=== PATIENT | female | born 1980 | race African-American/Black ===

== ENCOUNTER 2017-01-13 13:42 | Observation (INO) | payer OTHER ==
[2017-01-13] VITALS (10 sets, daily range): BP systolic 100–134; BP diastolic 48–77; PULSE 89–95; RESP 16–18; TEMP 98.1–98.7
[~2017-01-13 13:42] MED LIST: IBUP800T23 PO; PERI8.6T PO; PRENTAB PO
--- NOTE | 2017-01-13 14:09 | PD ---
HPI Chief Complaint Contractions Date Seen: Jan 13, 2017 (Genesis Mills MD R1) Travel History International Travel<30 Days: No Contact w/Intl Traveler<30Days: No Known Affected Area: No (Genesis Mills MD R1) History of Present Illness HPI Patient is a 36-year-old at 35/6 weeks gestation that presents to the [facility] ED with a chief complaint of contractions that began last night. She describes the contractions as sharp and long, 9/10, 10 minutes apart but have slowed down a bit today. The pelvic exam was performed at clinic where she was found to be 2-3 cm dilated with blood on the glove. Patient denies vaginal bleeding but states that she has seen some blood in her underwear after the pelvic exam. She denies loss of fluid, abnormal vaginal discharge, and endorses positive movements. Patient gets her care at [facility] with Zainab Daniels and was sent to the ED from clinic this morning. All her labs are negative. She did have chlamydia in October 2016, but had a negative test of cure in November 2016. Para: 5 : 7 Miscarriage: 1 : 0 (Genesis Mills MD R1) History Past Medical History Medical History: Denies Significant Hx (Genesis Mills MD R1) Obstetric History Obstetric History -1 miscarriage at 6 weeks -One child at 10 months (Genesis Mills MD R1) Social History Alcohol Use: No Tobacco Use: Yes (1 cigarette per day) Substance Abuse: No (remote history of marijuana and in the ) (Genesis Mills MD R1) Allergies-Medications (Allergen,Severity, Reaction): Coded Allergies: No Known Allergies (Verified , 09/11/16) Home Meds Active Scripts Sennosides-Docusate Sodium (Lia-Colace 8.6-50 mg)1 Tab Tab1 T Po Bid Prn ( Constipation) #30 Prov:Renata Cheatham MD 10/31/14 Ibuprofen 800 Mg [id number] Mg PO Q8 PRN (PAIN SCALE 4 TO 10) #30 TAB Ref 0 Prov:Renata Cheatham MD 10/31/14 Reported Medications Multivit-Min W/Fe-FA () Tab1 Tab PO DAILY 10/29/14 Review of Systems General / Constitutional: No: Fever, Chills Cardiovascular: No: Chest Pain or Discomfort Respiratory: No: Cough, Short of Breath Gastrointestinal: No: Nausea, Vomiting, Diarrhea Genitourinary: No: Dysuria Skin: No Rash (Genesis Mills MD R1) Physical Exam Narrative GENERAL: Well-nourished, well-developed patient. SKIN: Warm and dry. HEAD: Normocephalic and atraumatic. EYES: No scleral icterus. No injection or drainage. ENT: No nasal drainage noted. Mucous membranes pink. Airway patent. NECK: Supple, trachea midline. No JVD. CARDIOVASCULAR: Regular rate and rhythm without murmurs, gallops, or rubs. RESPIRATORY: Breath sounds equal bilaterally. No accessory muscle use. BREASTS: Bilateral exam showed no masses , no retractions, no nipple discharge. ABDOMEN/GI: Abdomen soft, non-tender, bowel sounds present, no rebound, no guarding Gravid to 35 weeks size Fundal Height: 35cm GENITOURINARY: External Genitalia: intact and normal in appearance Cervix: High and posterior Dilatation: 2-3cm Effacement: 50% Station: -3 Presentation: [-] Membranes: Intact Uterine Contractions: Present, every 2-3 minutes FHT's: Category: I Baseline: 145 Reactive: Yes, up to 155 Variability: Moderate Decels: None EXTREMITIES: No cyanosis or edema. BACK: Nontender without obvious deformity. No CVA tenderness. NEUROLOGICAL: Awake and alert. Motor and sensory grossly within normal limits. Five out of 5 muscle strength in all muscle groups. Normal speech. (Genesis Mills MD R1) Data Data Vital Signs Reviewed: Yes (Genesis Mills MD R1) [facility] Medical Record Reviewed: Yes Interpretation(s) 36 year old at 35/6 weeks gestation presents in labor. Plan Intrauterine - tracing category 1, reassuring -Contractions present every 2-3 minutes on tocometer -Cervical exam: 2-3 cm/50%/-3 -Urinalysis pending -UDS pending -LR bolus for the first 500 mL and then at 150 mL/hr -On recheck, cervical exam was 4cm dilated -Admit on observation -Rapid GBS -GBS prophylaxis with penicillin -Steroids 2 -Terbutaline subcutaneous 1 (Genesis Mills MD R1) Diagnosis Diagnosis: Primary Impression: labor in third trimester Condition: Stable Attestation Patient seen and examined. Agree with resident's assessment. (Khsuhboo Aguilera MD) Genesis Mills MD R1 Jan 13, 2017 14:09 Khushboo Aguilera MD Jan 13, 2017 16:24
[2017-01-13] MEDS ORDERED: LACTATED RINGER'S 1000 ML INJ 1,000 ML IV SCH (15:36)
[2017-01-13] MEDS ORDERED: SODIUM CHLORIDE 0.9% FLUSH 10 ML FLUSH IV FLUSH PRN (15:45)
--- NOTE | 2017-01-13 15:47 | HHI.HP ---
HPI Chief Complaint labor Date Seen: Jan 13, 2017 (Genesis Mills MD R1) Travel History International Travel<30 Days: No Contact w/Intl Traveler<30Days: No Known Affected Area: No (Genesis Mills MD) History of Present Illness HPI Patient is a 36-year-old at 35/6 weeks gestation that presents to the [facility] ED with a chief complaint of contractions that began last night. She describes the contractions as sharp and long, 9/10, 10 minutes apart but have slowed down a bit today. The pelvic exam was performed at clinic where she was found to be 2-3 cm dilated with blood on the glove. Patient denies vaginal bleeding but states that she has seen some blood in her underwear after the pelvic exam. She denies loss of fluid, abnormal vaginal discharge, and endorses positive movements. Patient gets her care at [facility] with Zainab Daniels and was sent to the ED from clinic this morning. All her labs are negative. She did have chlamydia in October 2016, but had a negative test of cure in November 2016. Para: 5 : 7 Miscarriage: 1 : 0 (Genesis Mills MD R1) History Past Medical History Medical History: Denies Significant Hx (Genesis Mills MD) Obstetric History Obstetric History All babies were delivered at [facility] -G1: 2000, spontaneous , no D&C -G2: 2001, full-term, spontaneous vaginal delivery, female, 8 lbs. 12 oz. -G3: 2003, full-term, , female, 6 lbs. 11 oz. -G4: 2010, full-term, , male, 7 pounds -G5: 2011, full-term, , male 7 lbs. 8 oz. -G6: 2014, full-term, , female 7 lbs. 15 oz.- due to SIDS at 5 months (Genesis Mills MD) Past Surgical History Surgical History: No Previous Surgery (Genesis Mills MD) Family History Narrative Family History Maternal grandmother has diabetes (Genesis Mills MD) Social History Alcohol Use: No Tobacco Use: Yes (1 cigarette per day) Substance Abuse: No (marijuana use early in the ) (Genesis Mills MD R1 ) Allergies-Medications (Allergen,Severity, Reaction): Coded Allergies: No Known Allergies (Verified , 09/11/16) Home Meds Active Scripts Sennosides-Docusate Sodium (Lia-Colace 8.6-50 mg)1 Tab Tab1 T Po Bid Prn ( Constipation) #30 Prov:Renata Cheatham MD 10/31/14 Ibuprofen 800 Mg [id number] Mg PO Q8 PRN (PAIN SCALE 4 TO 10) #30 TAB Ref 0 Prov:Renata Cheatham MD 10/31/14 Reported Medications Multivit-Min W/Fe-FA () Tab1 Tab PO DAILY 10/29/14 Review of Systems General / Constitutional: No: Fever, Chills Cardiovascular: No: Chest Pain or Discomfort Respiratory: No: Cough, Short of Breath Gastrointestinal: No: Nausea, Vomiting, Diarrhea Genitourinary: No: Dysuria Skin: No Rash (EkGenesis camilo MD R1) Physical Exam Vital Signs Date Time Temp Pulse Resp B/P Pulse Ox O2 Delivery O2 Flow Rate FiO2 01/13/17 14:16 16 01/13/17 14:15 89 120/67 Narrative GENERAL: Well-nourished, well-developed patient. SKIN: Warm and dry. HEAD: Normocephalic and atraumatic. EYES: No scleral icterus. No injection or drainage. ENT: No nasal drainage noted. Mucous membranes pink. Airway patent. NECK: Supple, trachea midline. No JVD. CARDIOVASCULAR: Regular rate and rhythm without murmurs, gallops, or rubs. RESPIRATORY: Breath sounds equal bilaterally. No accessory muscle use. BREASTS: Bilateral exam showed no masses , no retractions, no nipple discharge. ABDOMEN/GI: Abdomen soft, non-tender, bowel sounds present, no rebound, no guarding Gravid to 35 weeks size Fundal Height: 35cm GENITOURINARY: External Genitalia: intact and normal in appearance Cervix: High and posterior Dilatation: 4 cm Effacement: 50% Station: -3 Presentation: cephalic Membranes: Intact Uterine Contractions: Present, every 2-3 minutes FHT's: Category: I Baseline: 145 Reactive: Yes, up to 155 Variability: Moderate Decels: None EXTREMITIES: No cyanosis or edema. BACK: Nontender without obvious deformity. No CVA tenderness. NEUROLOGICAL: Awake and alert. Motor and sensory grossly within normal limits. Five out of 5 muscle strength in all muscle groups. Normal speech. (EkoGenesis MD R1) Data Data Vital Signs Reviewed: Yes Orders Vital Signs (Adult) .ON ADMISSION (01/13/17 14:09) ^ Labor Status (01/13/17 14:09) Urinalysis - C+S If Indicated (01/13/17 14:09) ^ Non Stress Test (01/13/17 14:) ^ Hydration (01/13/17 14:) Drug Screen, Random Urine (01/13/17 14:09) Lactated Ringer's 1000 Ml Inj (Lr 1000 M (01/13/17 14:30) Place In Observation (01/13/17 ) Code Status (01/13/17 15:36) Vital Signs (Adult) Q4H (01/13/17 15:36) Activity Bed Rest (01/13/17 15:36) Intake + Output CJ.QSHIFT (01/13/17 15:36) Heart CONTINUOUS (01/13/17 15:36) Diet Npo (01/13/17 Dinner) Sodium Chloride 0.9% Flush (Ns Flush) (01/13/17 15:45) Sodium Chloride 0.9% Flush (Ns Flush) (01/13/17 21:00) Betamethasone Inj (Celestone Soluspan In (01/13/17 15:45) Penicillin G Potassium Inj (Pfizerpen-G (01/13/17 15:45) Penicillin G Potassium Inj (Pfizerpen-G (01/13/17 17:45) Terbutaline Inj (Brethine Inj) (01/13/17 15:45) (EkoGenesis MD R1) Assessment/Plan Assessment and Plan 36 year old presents to the [place] ED in labor Intrauterine - tracing category 1, reassuring -Contractions present every 2-3 minutes on tocometer -Cervical exam: 4 cm/50%/-3, recheck was 4 cm dilated -Admit on observation -LR bolus for the first 500 mL and then at 150 mL/hr -Rapid GBS -GBS prophylaxis with penicillin -Steroids 2 -Terbutaline subcutaneous 1 -Urinalysis shows moderate occult blood, large leukocyte esterase, 18 WBC, 5 RBC , rare bacteria -Will wait for cultures to determine treatment -UDS pending Discharge Planning Possibly in 1-3 days depending on how labor progresses (Genesis Mills MD R1) Attestation Patient seen and examined. Will admit for observation for labor. Plan d/w patient. All questions answered. GBS culture and Urine culture pending. Antibiotics for GBS prophylaxis. Will administer steroids. (Khushboo Aguilera MD ) Genesis Mills MD R1 Jan 13, 2017 15:47 Khushboo Aguilera MD Jan 13, 2017 16:26
[2017-01-13 15:48] LABS: BACTERIA, URINE RARE /hpf; BLOOD, URINE MOD (NEG); COMMENT (UR) CULTURE INDICATED; CULTURE IF INDICATED CULTURE INDICATED; GLUCOSE,URINE NEG (NEG); KETONE, URINE NEG (NEG); NITRITE,URINE NEG (NEG); SQUAMOUS EPITHELIAL CELL URINE 5 /hpf (0-5); URINE COLOR LIGHT-YELLOW (YELLW/STRAW)
[2017-01-13] MEDS ORDERED: TERBUTALINE INJ 1 MG/ML AMP SQ ONE (16:00)
[2017-01-13] MEDS: BETAMETHASONE SOD PHOS/ACETATE SUSP 30 MG/5 ML VIAL IM SCH (16:01)
[2017-01-13 16:06] LABS: AMPHETAMINE, URINE NEG (NEG); BARBITURATES, URINE NEG (NEG); COCAINE, URINE NEG (NEG)
[2017-01-13] MEDS ORDERED: PENICILLIN G POTASSIUM INJ 5,000,000 UNITS in SODIUM CHLORIDE 0.9% INJ 100 ML IV ONE (17:00)
--- NOTE | 2017-01-13 20:09 | PD.LABORPN ---
Subjective Subjective Patient without complaints. Reports occasional contractions. Good FM. Objective Vital Signs Vital Signs Date Time Temp Pulse Resp B/P Pulse Ox O2 Delivery O2 Flow Rate FiO2 01/13/17 19:19 98.7 01/13/17 19:16 18 01/13/17 19:15 95 116/66 01/13/17 17:21 89 134/77 01/13/17 16:30 98.1 18 01/13/17 14:16 16 01/13/17 14:15 89 120/67 Objective Pelvic Exam: Cervix: [-] Dilatation: [3-4] Effacement: [60] Station: [2] Presentation: [-] Membranes: [intact or ruptured] Uterine Contractions: [irregular] FHT's: Category: [1] Baseline: [140s] Reactive: [reactive] Variability: [moderate] Decels: [rare variable] Assessment/Plan Assessment and Plan IUP at 35w 6d, r/o labor. Will continue antibiotics. S/p BMZ x 1. Continue to monitor. Khushboo Aguilera MD Jan 13, 2017 20:09
[2017-01-13] MEDS: SODIUM CHLORIDE 0.9% FLUSH 10 ML FLUSH IV FLUSH SCH (21:00)
[2017-01-13] MEDS: LACTATED RINGER'S 1000 ML INJ 1,000 ML IV SCH (21:31)
[2017-01-13] MEDS: PENICILLIN G POTASSIUM INJ 2,500,000 UNITS in SODIUM CHLORIDE 0.9% INJ 100 ML IV SCH (21:31)
[2017-01-13 22:01] LABS: AUTOMATED NEUTROPHIL # 6.3 TH/MM3 (1.8-7.7); BASOPHIL # 0.1 TH/MM3 (0-0.2); EOSINOPHIL % 0.4 % (0.0-4.0); HEMATOCRIT 33.5 % (35.0-46.0); HEMO FLAGS DIFF FINAL; LYMPH % 25.2 % (9.0-44.0); LYMPHOCYTE # 2.5 TH/MM3 (1.0-4.8); MEAN CELL VOLUME 82.6 FL (80.0-100.0); MEAN CORPUSCULAR HEMOGLOBIN 27.9 PG (27.0-34.0); MEAN CORPUSCULAR HGB CONC 33.7 % (32.0-36.0); MONO % 9.7 % (0.0-8.0); NEUT % 63.7 % (16.0-70.0); PLATELET COUNT 208 TH/MM3 (150-450); RED BLOOD COUNT 4.06 MIL/MM3 (4.00-5.30); RED CELL DISTRIBUTION WIDTH 13.5 % (11.6-17.2); WHITE BLOOD COUNT 9.8 TH/MM3 (4.0-11.0)
[2017-01-14] MEDS: PENICILLIN G POTASSIUM INJ 2,500,000 UNITS in SODIUM CHLORIDE 0.9% INJ 100 ML IV SCH ×4 (01:04→13:00)
[2017-01-14] MEDS: LACTATED RINGER'S 1000 ML INJ 1,000 ML IV SCH ×2 (01:05→06:30)
[2017-01-14 01:06] VITALS: RESP 16
[2017-01-14 04:00] VITALS: RESP 16
[2017-01-14 05:09] VITALS: RESP 16
[2017-01-14 07:27] VITALS: BP 110/60; PULSE 94; TEMP 97.8
--- NOTE | 2017-01-14 08:14 | PD.LABORPN ---
Subjective Subjective Patient without complaints. Objective Vital Signs Vital Signs Date Time Temp Pulse Resp B/P Pulse Ox O2 Delivery O2 Flow Rate FiO2 01/14/17 07:27 97.8 01/14/17 07:27 94 110/60 01/14/17 05:09 16 01/14/17 04:00 16 01/14/17 01:06 16 Objective Pelvic Exam: Cervix: [-] Dilatation: [3-4] Effacement: [50] Station: [-3] Presentation: [-] Membranes: [intact or ruptured] Uterine Contractions: [irregular] FHT's: Category: [2] Baseline: [120s] Reactive: [reactive] Variability: [moderate] Decels: [variable to 100s] Assessment/Plan Assessment and Plan IUP at 36w 2d, admitted for possible labor, treated for UTI. Continue to monitor. Will obtain BPP. All questions answered. Khushboo Aguilera MD Jan 14, 2017 08:13
--- NOTE | 2017-01-14 08:50 | PD.LABORPN ---
Subjective Subjective Pt is doing well. Still feeling contractions but less than yesterday. Objective Vital Signs Vital Signs Date Time Temp Pulse Resp B/P Pulse Ox O2 Delivery O2 Flow Rate FiO2 01/14/17 07:27 97.8 01/14/17 07:27 94 110/60 01/14/17 05:09 16 01/14/17 04:00 16 01/14/17 01:06 16 Objective Pelvic Exam: Cervix: Posterior Dilatation: 3-4cm Effacement: 40% Station: -3 Presentation: Cephalic Membranes: intact Uterine Contractions: present, irregular frequency FHT's: Category: 1 Baseline: 130 Reactive: up to 160 Variability: Moderate Decels: early Assessment/Plan Assessment and Plan 36 in labor. -IUP - category 1 -Contractions occurring in decreased frequency -Cervical exam unchanged -Will transition to intermittent monitoring Genesis Mills MD R1 Jan 14, 2017 08:50
[2017-01-14] MEDS: SODIUM CHLORIDE 0.9% FLUSH 10 ML FLUSH IV FLUSH SCH (09:00)
[2017-01-14 12:00] VITALS: RESP 18; TEMP 97.6
[2017-01-14 12:19] VITALS: BP 111/65; PULSE 92
--- NOTE | 2017-01-14 14:50 | HHI.DCPOC ---
Discharge Care Plan Diagnosis: (1) labor in third trimester Report Symptoms to Your Doctor -Temperate above 100.5 degrees -Redness, of incision or excessive or foul smelling drainage -Unusual pain or calf pain -Increased vaginal bleeding -Painful or difficulty urinating -Feelings of extreme sadness or anxiety after 2 weeks Goals to Promote Your Health * To prevent worsening of your condition and complications * To maintain your health at the optimal level Directions to Meet Your Goals Take your medications as prescribed Follow your dietary instruction Follow activity as directed Ensure plenty of rest for recovery Drink fluids for hydration Keep your appointments as scheduled Take your immunizations and boosters as scheduled If your symptoms worsen call your PCP, if no PCP go to Urgent Care Center or Emergency Room Smoking is Dangerous to Your Health. Avoid second hand smoke Call the 24-hour crisis hotline for domestic abuse at Genesis Mills MD R1 Jan 14, 2017 14:50
[2017-01-14] MEDS: BETAMETHASONE SOD PHOS/ACETATE SUSP 30 MG/5 ML VIAL IM SCH (16:05)
[2017-01-18 09:48] LABS: ECSTASY (MDMA) UR NEG (NEG); HEROIN (6-ACETYLMORPHINE) UR NEG (NEG); OBMETHADONE UR NEG (NEG); PHENCYCLIDINE URINE NEG (NEG)
[2017-01-18 09:49] LABS: BATH SALTS (MDPV) UR NEG (NEG); K2 SPICE UR NEG (NEG); OXYCODONE (PERCODAN) NEG (NEG)
== END 2017-01-14 16:28 | disposition home or self-care (01) ==
LOC: HOBED 13:42 → H2EA 16:11
PROVIDERS: ADMIT Obstetrics & Gynecology; ATTEND Obstetrics & Gynecology
DX: O26.893 Other specified pregnancy related conditions, third trimester (principal); Z3A.36 36 weeks gestation of pregnancy; O60.03 Preterm labor without delivery, third trimester; O09.523 Supervision of elderly multigravida, third trimester; B96.89 Other specified bacterial agents as the cause of diseases classified elsewhere; D72.829 Elevated white blood cell count, unspecified; Z86.19 Personal history of other infectious and parasitic diseases
CPT/HCPCS: 59025; 76816; 76819; 80307; 81001; 85025; 86592; 86850; 86900; 86901; 87081; 87086; 87150; 96361; 96372; 96374; 99284; G0378; G0481; J0702; J2540; J3010; J3105; J7120

== ENCOUNTER 2017-02-01 08:48 | Inpatient (IN) | payer OTHER ==
[2017-02-01] VITALS (9 sets, daily range): BP systolic 111–125; BP diastolic 68–85; PULSE 67–84; RESP 16–18; TEMP 97.6–98.1
[~2017-02-01] VITALS: Ht 170.2 cm; Wt 71.7 kg
[~2017-02-01 08:48] MED LIST changes: -IBUP800T23 PO
[2017-02-01] MEDS ORDERED: LACTATED RINGER'S 1000 ML INJ 1,000 ML IV PRN (09:12)
[2017-02-01] MEDS ORDERED: CITRIC ACID-SODIUM CITRATE LIQ 30 ML UDC PO SCH (09:15)
[2017-02-01] MEDS ORDERED: OXYTOCIN 30 UNITS-500ML PREMIX 500 ML IV ONE (09:15)
[2017-02-01] MEDS ORDERED: MINERAL OIL 10 ML VIAL TOPICAL PRN (09:15)
[2017-02-01] MEDS ORDERED: SODIUM CHLORID 0.9% 500 ML INJ 500 ML IV PRN (09:15)
[2017-02-01] MEDS ORDERED: LIDOCAINE HCL 1% 50 ML VIAL INFIL PRN (09:15)
[2017-02-01] MEDS ORDERED: LIDOCAINE HCL 1% 50 ML VIAL I-DERMAL PRN (09:15)
[2017-02-01] MEDS ORDERED: SODIUM CHLOR 0.9% 1000 ML INJ 1,000 ML IV PRN (09:32)
--- NOTE | 2017-02-01 09:35 | PD ---
HPI Chief Complaint Contractions Date Seen: Feb 01, 2017 (Genesis Mills MD R1) Travel History International Travel<30 Days: No Contact w/Intl Traveler<30Days: No Known Affected Area: No (Genesis Mills MD) History of Present Illness HPI Patient is a 36-year-old at 38/6 weeks gestation that presents to the [facility] ED with a chief complaint of contractions that began this morning around 6 AM. Patient states that she started counting the contractions around 7 AM and they occur every 10 minutes. She denies loss of fluid, vaginal bleeding, abnormal/foul-smelling vaginal discharge and has been feeling the baby move. [facility]. All her labs are negative. She did have chlamydia in October 2016, but had a negative test of cure in November 2016. Notably, she is GBS negative. Para: 5 : 7 Miscarriage: 1 : 0 (Genesis Mills MD) History Past Medical History Medical History: Denies Significant Hx (Genesis Mills MD) Obstetric History Obstetric History All babies were delivered at [facility] -G1: 2000, spontaneous , no D&C -G2: 2001, full-term, spontaneous vaginal delivery, female, 8 lbs. 12 oz. -G3: 2003, full-term, , female, 6 lbs. 11 oz. -G4: 2010, full-term, , male, 7 pounds -G5: 2011, full-term, , male 7 lbs. 8 oz. -G6: 2014, full-term, , female 7 lbs. 15 oz.- due to SIDS at 5 months (Genesis Mills MD) Past Surgical History Surgical History: No Previous Surgery (Genesis Mills MD) Family History Narrative Family History Maternal grandmother has diabetes (Genesis Mills MD) Social History Alcohol Use: No Tobacco Use: Yes (smokes one cigar per day) Substance Abuse: Yes (marijuana, last use was 3 days ago) (Genesis Mills MD) Allergies-Medications (Allergen,Severity, Reaction): Coded Allergies: No Known Allergies (Verified , 02/01/17) Home Meds Reported Medications Multivit-Min W/Fe-FA () Tab1 Tab PO DAILY 10/29/14 Discontinued Scripts Sennosides-Docusate Sodium (Lia-Colace 8.6-50 mg)1 Tab Tab1 T Po Bid Prn ( Constipation) #30 Prov:Renata Cheatham MD 10/31/14 Review of Systems General / Constitutional: No: Fever, Chills Eyes: No: Blurred Vision, Visual changes HENT: No: Headaches Cardiovascular: No: Chest Pain or Discomfort Respiratory: Cough, No: Short of Breath Gastrointestinal: No: Nausea, Vomiting, Diarrhea Genitourinary: No: Dysuria, Discharge, Vaginal Bleeding Musculoskeletal: No: Weakness, Edema Skin: No Rash (EkoGenesis MD R1) Physical Exam Narrative GENERAL: Well-nourished, well-developed patient. SKIN: Warm and dry. HEAD: Normocephalic and atraumatic. EYES: No scleral icterus. No injection or drainage. ENT: No nasal drainage noted. Mucous membranes pink. Airway patent. NECK: Supple, trachea midline. No JVD. CARDIOVASCULAR: Regular rate and rhythm without murmurs, gallops, or rubs. RESPIRATORY: Breath sounds equal bilaterally. No accessory muscle use. ABDOMEN/GI: Abdomen soft, non-tender, bowel sounds present, no rebound, no guarding Gravid to 39 weeks size GENITOURINARY: External Genitalia: intact and normal in appearance Cervix: Mid position Dilatation: 3cm Effacement: 50% Station: -2 Presentation: Vertex Membranes: Intact Uterine Contractions: Presents, every 2-4 minutes FHT's: Category: I-II (intermittent periods of decreased variability) Baseline: 140 Reactive: Up to 150 Variability: Minimal to moderate variability Decels: None EXTREMITIES: No cyanosis or edema. BACK: Nontender without obvious deformity. No CVA tenderness. NEUROLOGICAL: Awake and alert. Motor and sensory grossly within normal limits. Five out of 5 muscle strength in all muscle groups. Normal speech. (Genesis Mills MD R1) Data Data Vital Signs Reviewed: Yes Orders Ob (2e) Additional Admit Info (02/01/17 09:11) Admit To Inpatient (02/01/17 ) Vital Signs (Adult) .Per protocol (02/01/17 09:12) Activity Oob Ad Yoselin (02/01/17 09:12) Heart (02/01/17 09:12) Amnioinfusion (02/01/17 09:12) Urinary Catheter Management .ONCE (02/01/17 09:12) Diet Npo (02/01/17 Breakfast) Lactated Ringer's 1000 Ml Inj (Lr 1000 M (02/01/17 09:12) Lactated Ringer's 1000 Ml Inj (Lr 1000 M (02/01/17 09:12) Sodium Chlorid 0.9% 500 Ml Inj (Ns 500 M (02/01/17 09:15) Sodium Chlor 0.9% 1000 Ml Inj (Ns 1000 M (02/01/17 09:32) Lidocaine 1% Inj (50 Ml) (Xylocaine 1% I (02/01/17 09:15) Citric Acid-Sodium Citrate Liq (Bicitra (02/01/17 09:15) Fentanyl Inj (Fentanyl Inj) (02/01/17 09:15) Fentanyl Inj (Fentanyl Inj) (02/01/17 09:15) Complete Blood Count With Diff (02/01/17 09:12) Hold Clot (02/01/17 09:12) Abo/Rh Blood Type (02/01/17 09:12) Urinalysis - C+S If Indicated (02/01/17 09:12) Resp Oxygen Non Rebreathe Mask (02/01/17 ) ^ Epidural / Intrathecal Infus (02/01/17 09:12) Oxytocin 30 Units-500ml Premix (Pitocin (02/01/17 09:15) Lidocaine 1% Inj (50 Ml) (Xylocaine 1% I (02/01/17 09:15) Light Mineral Oil (Muri-Lube Oil) (02/01/17 09:15) Inpatient Certification (02/01/17 ) Ob/Psych Drug Screen, Urine (02/01/17 09:26) (Eko,Genesis Ortiz MD R1) [facility] Medical Record Reviewed: Yes Interpretation(s) 36-year-old at 38/6 weeks gestation that presents in labor, GBS negative Plan Intrauterine - tracing category I-II with an intermittent periods of minimal variability that resolved with a 500 mL fluid bolus -Cervical exam: /-2 -Plan is to admit to labor and delivery -Continue monitoring -Routine antepartum care -UDS due to history of marijuana use during (Genesis Mills MD R1) Attending Attestation Patient seen and evaluated with resident under direct supervision, agree with assessment and plan. (Julián Jimenez MD) Genesis Mills MD R1 Feb 01, 2017 09:35 Julián Jimenez MD February 03, 2017 07:40
[2017-02-01] MEDS: LACTATED RINGER'S 1000 ML INJ 1,000 ML IV SCH ×2 (09:43→11:42)
--- NOTE | 2017-02-01 09:48 | HHI.HP ---
HPI Travel History International Travel<30 Days: No Contact w/Intl Traveler<30Days: No Known Affected Area: No (Genesis Mills MD R1) History of Present Illness HPI Patient is a 36-year-old at 38/6 weeks gestation that presents to the [facility] with a chief complaint of contractions that began this morning around 6 AM. Patient states that she started counting the contractions around 7 AM and they occur every 10 minutes. She denies loss of fluid, vaginal bleeding, abnormal/foul-smelling vaginal discharge and has been feeling the baby move. She [facility] care at [facility]. All her labs are negative. She did have chlamydia in October 2016, but had a negative test of cure in November 2016. Notably, she is GBS negative. Para: 5 : 7 Miscarriage: 1 : 0 (Genesis Mills MD R1) History Past Medical History Medical History: Denies Significant Hx (Genesis Mills MD) Obstetric History Obstetric History All babies were delivered at [facility] -G1: 2000, spontaneous , no D&C -G2: 2001, full-term, spontaneous vaginal delivery, female, 8 lbs. 12 oz. -G3: 2003, full-term, , female, 6 lbs. 11 oz. -G4: 2010, full-term, , male, 7 pounds -G5: 2011, full-term, , male 7 lbs. 8 oz. -G6: 2014, full-term, , female 7 lbs. 15 oz.- due to SIDS at 5 months (Genesis Mills MD R1) Past Surgical History Surgical History: No Previous Surgery (Genesis Mills MD) Family History Narrative Family History Maternal grandmother has diabetes (Genesis Mills MD) Social History Alcohol Use: No Tobacco Use: Yes (smokes one cigar per day) Substance Abuse: Yes (marijuana, last use was 3 days ago) (Genesis Mills MD R1) Allergies-Medications (Allergen,Severity, Reaction): Coded Allergies: No Known Allergies (Verified , 02/01/17) Home Meds Reported Medications Multivit-Min W/Fe-FA () Tab1 Tab PO DAILY 10/29/14 Discontinued Scripts Sennosides-Docusate Sodium (Lia-Colace 8.6-50 mg)1 Tab Tab1 T Po Bid Prn ( Constipation) #30 Prov:Renata Cheatham MD 10/31/14 Review of Systems General / Constitutional: No: Fever, Chills Eyes: No: Blurred Vision, Visual changes HENT: No: Headaches Cardiovascular: No: Chest Pain or Discomfort Respiratory: Cough, No: Short of Breath Gastrointestinal: No: Nausea, Vomiting, Diarrhea Genitourinary: No: Dysuria, Discharge, Vaginal Bleeding Musculoskeletal: No: Weakness, Edema Skin: No Rash (EkoGenesis MD R1) Physical Exam Narrative GENERAL: Well-nourished, well-developed patient. SKIN: Warm and dry. HEAD: Normocephalic and atraumatic. EYES: No scleral icterus. No injection or drainage. ENT: No nasal drainage noted. Mucous membranes pink. Airway patent. NECK: Supple, trachea midline. No JVD. CARDIOVASCULAR: Regular rate and rhythm without murmurs, gallops, or rubs. RESPIRATORY: Breath sounds equal bilaterally. No accessory muscle use. ABDOMEN/GI: Abdomen soft, non-tender, bowel sounds present, no rebound, no guarding Gravid to 39 weeks size GENITOURINARY: External Genitalia: intact and normal in appearance Cervix: Mid position Dilatation: 3cm Effacement: 50% Station: -2 Presentation: Vertex Membranes: Intact Uterine Contractions: Presents, every 2-4 minutes FHT's: Category: I-II (intermittent periods of decreased variability) Baseline: 140 Reactive: Up to 150 Variability: Minimal to moderate variability Decels: None EXTREMITIES: No cyanosis or edema. BACK: Nontender without obvious deformity. No CVA tenderness. NEUROLOGICAL: Awake and alert. Motor and sensory grossly within normal limits. Five out of 5 muscle strength in all muscle groups. Normal speech. (Genesis Mills MD R1) Data Data Vital Signs Reviewed: Yes Orders Ob (2e) Additional Admit Info (02/01/17 09:11) Admit To Inpatient (02/01/17 ) Vital Signs (Adult) .Per protocol (02/01/17 09:12) Activity Oob Ad Yoselin (02/01/17 09:12) Heart (02/01/17 09:12) Amnioinfusion (02/01/17 09:12) Urinary Catheter Management .ONCE (02/01/17 09:12) Diet Npo (02/01/17 Breakfast) Lactated Ringer's 1000 Ml Inj (Lr 1000 M (02/01/17 09:12) Lactated Ringer's 1000 Ml Inj (Lr 1000 M (02/01/17 09:12) Sodium Chlorid 0.9% 500 Ml Inj (Ns 500 M (02/01/17 09:15) Sodium Chlor 0.9% 1000 Ml Inj (Ns 1000 M (02/01/17 09:32) Lidocaine 1% Inj (50 Ml) (Xylocaine 1% I (02/01/17 09:15) Citric Acid-Sodium Citrate Liq (Bicitra (02/01/17 09:15) Fentanyl Inj (Fentanyl Inj) (02/01/17 09:15) Fentanyl Inj (Fentanyl Inj) (02/01/17 09:15) Complete Blood Count With Diff (02/01/17 09:12) Hold Clot (02/01/17 09:12) Abo/Rh Blood Type (02/01/17 09:12) Urinalysis - C+S If Indicated (02/01/17 09:12) Resp Oxygen Non Rebreathe Mask (02/01/17 ) ^ Epidural / Intrathecal Infus (02/01/17 09:12) Oxytocin 30 Units-500ml Premix (Pitocin (02/01/17 09:15) Lidocaine 1% Inj (50 Ml) (Xylocaine 1% I (02/01/17 09:15) Light Mineral Oil (Muri-Lube Oil) (02/01/17 09:15) Inpatient Certification (02/01/17 ) Ob/Psych Drug Screen, Urine (02/01/17 09:26) (Eko,Genesis Ortiz MD R1) Assessment/Plan Assessment and Plan 36-year-old at 38/6 weeks gestation that presents in labor, GBS negative Discharge Planning Intrauterine - tracing category I-II with an intermittent periods of minimal variability that resolved with a 500 mL fluid bolus, no decelerations -Cervical exam: /-2 -Plan is to admit to labor and delivery -Continue monitoring -Routine antepartum care -Patient does not want an epidural at this time -UDS due to history of marijuana use during (Genesis Mills MD R1) Attending Attestation Patient seen and evaluated with resident under direct supervision, agree with assessment and plan. (Julián Jimenez MD) Addendum Remarks I rounded on the patient. I rounded with the resident. I reviewed the resident' s assessment and plan of care for this patient. I am in agreement with the plan of care for this patient. (Corrie Connell MD) Genesis Mills MD R1 Feb 01, 2017 09:48 Corrie Connell MD Feb 02, 2017 05:30 Julián Jimenez MD February 03, 2017 07:42
[2017-02-01 10:01] LABS: AUTOMATED NEUTROPHIL # 4.7 TH/MM3 (1.8-7.7); BASOPHIL % 0.4 % (0.0-2.0); EOSINOPHIL % 0.4 % (0.0-4.0); HEMATOCRIT 36.6 % (35.0-46.0); HEMO FLAGS DIFF FINAL; LYMPH % 31.6 % (9.0-44.0); LYMPHOCYTE # 2.6 TH/MM3 (1.0-4.8); MEAN CELL VOLUME 82.1 FL (80.0-100.0); MEAN CORPUSCULAR HEMOGLOBIN 27.5 PG (27.0-34.0); MEAN CORPUSCULAR HGB CONC 33.4 % (32.0-36.0); MONO % 10.4 % (0.0-8.0); NEUT % 57.2 % (16.0-70.0); PLATELET COUNT 196 TH/MM3 (150-450); RED BLOOD COUNT 4.46 MIL/MM3 (4.00-5.30); RED CELL DISTRIBUTION WIDTH 13.7 % (11.6-17.2); WHITE BLOOD COUNT 8.3 TH/MM3 (4.0-11.0)
[2017-02-01 10:07] LABS: BACTERIA, URINE FEW /hpf; BLOOD, URINE NEG (NEG); COMMENT (UR) CULTURE INDICATED; CULTURE IF INDICATED CULTURE INDICATED; GLUCOSE,URINE NEG (NEG); KETONE, URINE NEG (NEG); NITRITE,URINE NEG (NEG); PH, URINE 7.5 (5.0-8.5); SQUAMOUS EPITHELIAL CELL URINE 11 /hpf (0-5); URINE COLOR LIGHT-YELLOW (YELLW/STRAW)
--- NOTE | 2017-02-01 10:55 | PD.LABORPN ---
Subjective Subjective Changing shifts Dr. Lord coming on duty; chart reviewed This patient is a 36-year-old 7 para 5014 at 38 weeks and 6 days group B strep is negative care with Zainab Daniels Presently she does not desire an epidural is ivan about every 3-4 minutes moderate in intensity denies any other problems during her course her largest baby was 8 lbs. 12 oz. Objective Vital Signs Blood pressure 117/78 baseline heart rate of 140 with accelerations to 160 pulse is 84 hemoglobin 12.2 hematocrit 36.6 platelet 196,000 Vital Signs Date Time Temp Pulse Resp B/P Pulse Ox O2 Delivery O2 Flow Rate FiO2 02/01/17 09:55 18 02/01/17 09:53 84 117/78 Objective Pelvic Exam: Cervix: [-] Posterior Dilatation: [-] 4 cm Effacement: [-] 75% effaced Station: [-] -1 to -2 station Presentation: [-] Vertex Membranes: [intact Uterine Contractions: [-] Every 3-4 FHT's: Category: [-] 1 Baseline: [-]140 Reactive: [-] + Accelerations to 160 Variability: [-] Moderate Decels: [-] 0 Assessment/Plan Assessment and Plan Assessment; 36-year-old at 38 weeks and 6 days Early latent phase All progress being made Category 1 tracing Plan; Continue present care Pitocin if indicated Pain management if patient requests Corrie Connell MD Feb 01, 2017 10:55
[2017-02-01 11:04] LABS: AMPHETAMINE, URINE NEG (NEG); BARBITURATES, URINE NEG (NEG); COCAINE, URINE NEG (NEG)
[2017-02-01] MEDS ORDERED: ZOLPIDEM TARTRATE 5 MG TAB PO PRN (15:00)
[2017-02-01] MEDS ORDERED: ACETAMINOPHEN 325 MG TAB PO PRN (15:00)
[2017-02-01] MEDS ORDERED: ALUMINUM/MAGNESIUM/SIMETH 30 ML CUP PO PRN (15:00)
[2017-02-01] MEDS ORDERED: WITCH HAZEL 50%/GLYCERIN 12.5% 40 PAD JAR TOPICAL PRN (15:00)
[2017-02-01] MEDS ORDERED: oxyCODONE/ACETAMINOPHEN 5 MG/325 MG TAB PO PRN (15:00)
[2017-02-01] MEDS ORDERED: SODIUM CHLORIDE 0.9% FLUSH 10 ML FLUSH IV FLUSH PRN (15:00)
[2017-02-01] MEDS ORDERED: ONDANSETRON ODT 4 MG TAB PO PRN (15:00)
[2017-02-01] MEDS ORDERED: BENZOCAINE 20% TOPICAL SPRAY 60 ML CAN TOPICAL PRN (15:00)
--- NOTE | 2017-02-01 15:07 | PD.OB.DELI ---
Delivery Date: Feb 01, 2017 Anesthesia: Epidural Episiotomy: None Vaginal Delivery: Normal Presentation: Occiput anterior Nuchal Cord: x2 Delayed cord clamping (45 sec): No Infant: Female One Minute : 8 Five Minute : 9 Weight: 3420 Placenta: Spontaneous delivery Laceration: No lacerations Additional Information Delivered 02/01 at 1445 No lacerations Infant responded to stimulation, suction, blow by O2 Assisted/ supervised by Mitch Stewart MD R2 Feb 01, 2017 15:07
[2017-02-01] MEDS: IBUPROFEN 600 MG TAB PO PRN ×2 (15:16→20:58)
[2017-02-01] MEDS: oxyCODONE/ACETAMINOPHEN 5 MG/325 MG TAB PO PRN ×2 (15:17→20:58)
[2017-02-01] MEDS ORDERED: MEASLES, MUMPS, RUBELLA VACCINE 0.5 ML VIAL SQ ONE (16:00)
[2017-02-01] MEDS ORDERED: DIPHTH/TETANUS/ACEL PERTUSSIS (BOOSTER) 0.5 ML VIAL/PFS IM ONE (16:00)
[2017-02-01] MEDS: DOCUSATE SODIUM 50 MG/SENNA 8.6 MG TAB PO PRN (20:57)
[2017-02-01] MEDS: SODIUM CHLORIDE 0.9% FLUSH 10 ML FLUSH IV FLUSH SCH (21:00)
[2017-02-02] MEDS: oxyCODONE/ACETAMINOPHEN 5 MG/325 MG TAB PO PRN ×3 (03:13→20:33)
[2017-02-02] MEDS: IBUPROFEN 600 MG TAB PO PRN ×3 (03:14→20:33)
[2017-02-02 07:30] VITALS: BP 104/64; PULSE 65; RESP 16; TEMP 98.2
[2017-02-02] MEDS: SODIUM CHLORIDE 0.9% FLUSH 10 ML FLUSH IV FLUSH SCH ×2 (09:00→21:00)
--- NOTE | 2017-02-02 10:50 | HHI.OB ---
Subjective Post Day: 1 Remarks Ms. Stack is a who is PPD 1 from (02/01 at 1445). Ms. Stack reports her pain is controlled at this time. Patient reports light vaginal bleeding. Patient does not report shortness of breath or leg swelling. No dysuria. Patient passing gas normally. Patient ambulating normally. Objective Vitals/I&O Vital Signs Date Time Temp Pulse Resp B/P Pulse Ox O2 Delivery O2 Flow Rate FiO2 02/02/17 07:30 98.2 65 16 104/64 02/01/17 17:43 97.9 68 16 113/69 02/01/17 16:00 73 112/71 02/01/17 15:30 72 123/77 02/01/17 15:15 97.6 02/01/17 15:15 98.1 71 18 116/68 02/01/17 14:26 80 125/85 02/01/17 12:30 67 124/85 02/01/17 11:25 80 111/73 Objective Remarks GENERAL: Well-nourished, well-developed patient. CARDIOVASCULAR: Regular rate and rhythm without murmurs. Normal perfusion RESPIRATORY: CTAB, normal rate ABDOMEN/GI: Abdomen soft, non-tender. Fundus: Firm, non-tender at umbilicus. GENITOURINARY: Light to moderate bleeding. EXTREMITIES: No cyanosis or edema, non-tender, without signs of DVT. Medications and IVs Current Medications Medications (Trade) Dose Ordered Sig/Gissel Route Start Time Stop Time Status Last Admin (NS Flush) 2 ml BID IV FLUSH 02/01/17 21:00 (NS Flush) 2 ml UNSCH PRN IV FLUSH 02/01/17 15:00 (Tylenol) 650 mg Q4H PRN PO 02/01/17 15:00 (Motrin) 600 mg Q6H PRN PO 02/01/17 15:00 02/02/17 03:14 (Percocet 5-325 Mg) 1 tab Q4H PRN PO 02/01/17 15:00 02/02/17 03:13 (Percocet 5-325 Mg) 2 tab Q4H PRN PO 02/01/17 15:00 (Americaine 20% Top Spr) 1 spray Q4H PRN TOPICAL 02/01/17 15:00 (Tucks Pads) 1 applic QID PRN TOPICAL 02/01/17 15:00 (Lia-Colace) 2 tab Q12H PRN PO 02/01/17 15:00 02/01/17 20:57 (Ambien) 5 mg HS PRN PO 02/01/17 15:00 (Mag-Al Plus Susp Liq) 15 ml Q8H PRN PO 02/01/17 15:00 (Zofran Odt) 4 mg Q6H PRN PO 02/01/17 15:00 Assessment/Plan Problem List: (1) care and examination Assessment and Plan who is PPD 1 from (02/01 at 1445) Routine care -PRN Motrin/Percocet -Continue to encourage ambulation -Continue to encourage -Continue to monitor VS, vaginal bleeding -Encourage ; provide assistance as needed Continue stool softener Discharge Planning Anticipate discharge tomorrow Mitch Rutherford MD R2 Feb 02, 2017 10:50
[2017-02-02] MEDS: DOCUSATE SODIUM 50 MG/SENNA 8.6 MG TAB PO PRN (20:32)
[2017-02-03] MEDS: IBUPROFEN 600 MG TAB PO PRN (03:20)
[2017-02-03] MEDS: oxyCODONE/ACETAMINOPHEN 5 MG/325 MG TAB PO PRN (03:21)
--- NOTE | 2017-02-03 07:25 | HHI.OB ---
Subjective Post Day: 2 Remarks Ms. Stack is a who is PPD 2 from (02/01 at 1445). Ms. Stack reports she is doing well; she states she has minimal pain. Patient reports light vaginal bleeding. Patient does not report shortness of breath or leg swelling. No dysuria. Patient has had bowel movement. Patient ambulating normally. (Mitch Rutherford MD R2) Remarks Patient seen and evaluated with resident under direct supervision, agree with assessment and plan. (Julián Jimenez MD) Objective Vitals/I&O Vital Signs Date Time Temp Pulse Resp B/P Pulse Ox O2 Delivery O2 Flow Rate FiO2 02/02/17 07:30 98.2 65 16 104/64 Objective Remarks GENERAL: Well-nourished, well-developed patient. CARDIOVASCULAR: Regular rate and rhythm without murmurs. Normal perfusion RESPIRATORY: CTAB, normal rate ABDOMEN/GI: Abdomen soft, non-tender. Fundus: Firm, non-tender at umbilicus. GENITOURINARY: Light to moderate bleeding. EXTREMITIES: No cyanosis or edema, non-tender, without signs of DVT. Medications and IVs Current Medications Medications (Trade) Dose Ordered Sig/Gissel Route Start Time Stop Time Status Last Admin (NS Flush) 2 ml BID IV FLUSH 02/01/17 21:00 (NS Flush) 2 ml UNSCH PRN IV FLUSH 02/01/17 15:00 (Tylenol) 650 mg Q4H PRN PO 02/01/17 15:00 (Motrin) 600 mg Q6H PRN PO 02/01/17 15:00 02/03/17 03:20 (Percocet 5-325 Mg) 1 tab Q4H PRN PO 02/01/17 15:00 02/03/17 03:21 (Percocet 5-325 Mg) 2 tab Q4H PRN PO 02/01/17 15:00 (Americaine 20% Top Spr) 1 spray Q4H PRN TOPICAL 02/01/17 15:00 (Tucks Pads) 1 applic QID PRN TOPICAL 02/01/17 15:00 (Lia-Colace) 2 tab Q12H PRN PO 02/01/17 15:00 02/02/17 20:32 (Ambien) 5 mg HS PRN PO 02/01/17 15:00 (Mag-Al Plus Susp Liq) 15 ml Q8H PRN PO 02/01/17 15:00 (Zofran Odt) 4 mg Q6H PRN PO 02/01/17 15:00 (Mitch Rutherford MD R2) Assessment/Plan Problem List: (1) care and examination Assessment and Plan who is PPD 2 from (02/01 at 1445) Routine care -PRN Motrin/Percocet -Continue to encourage ambulation -Continue to encourage -Continue to monitor VS, vaginal bleeding -Encourage ; provide assistance as needed Continue stool softener Discharge Planning Anticipate discharge tomorrow (Mitch Rutherford MD R2) Mitch Rutherford MD R2 February 03, 2017 07:25 Julián Jimenez MD February 03, 2017 07:54
--- NOTE | 2017-02-03 08:29 | HHI.DCPOC ---
Discharge Care Plan Diagnosis: (1) care and examination Report Symptoms to Your Doctor -Temperate above 100.5 degrees -Unusual pain or calf pain -Increased vaginal bleeding -Painful or difficulty urinating -Feelings of extreme sadness or anxiety after 2 weeks Goals to Promote Your Health * To prevent worsening of your condition and complications * To maintain your health at the optimal level Directions to Meet Your Goals Take your medications as prescribed Follow your dietary instruction Follow activity as directed Ensure plenty of rest for recovery Drink fluids for hydration Keep your appointments as scheduled Take your immunizations and boosters as scheduled If your symptoms worsen call your PCP, if no PCP go to Urgent Care Center or Emergency Room Smoking is Dangerous to Your Health. Avoid second hand smoke Call the 24-hour crisis hotline for domestic abuse at Mitch Rutherford MD R2 February 03, 2017 08:29
[2017-02-03] MEDS ORDERED: SENN1TAB PO (08:30)
[2017-02-03] MEDS ORDERED: IBUP-232 PO (08:30)
[2017-02-03] MEDS ORDERED: CEPH500C PO (08:34)
[2017-02-06 12:51] LABS: BATH SALTS (MDPV) UR NEG (NEG); ECSTASY (MDMA) UR NEG (NEG); GABAPENTIN UR NEG (NEG); HEROIN (6-ACETYLMORPHINE) UR NEG (NEG); K2 SPICE UR NEG (NEG); OBMETHADONE UR NEG (NEG); OXYCODONE (PERCODAN) NEG (NEG); PHENCYCLIDINE URINE NEG (NEG)
[2017-02-06 12:52] LABS: HYDROMORPHONE U NEG (NEG)
== END 2017-02-03 12:36 | disposition home or self-care (01) | DRG 775 ==
LOC: HOBED 08:48 → H2EA 09:12 → H1EA 16:20
PROVIDERS: ADMIT Obstetrics & Gynecology; ATTEND Obstetrics & Gynecology
PROC: 10E0XZZ Delivery of Products of Conception, External Approach (ICD-10-PCS; principal; 2017-02-01)
PROC: 00HU33Z Insertion of Infusion Device into Spinal Canal, Percutaneous Approach (ICD-10-PCS; 2017-02-01)
PROC: 3E0R3CZ (ICD-10-PCS; 2017-02-01)
DX: O99.334 Smoking (tobacco) complicating childbirth (principal); F17.290 Nicotine dependence, other tobacco product, uncomplicated; Z37.0 Single live birth; Z3A.38 38 weeks gestation of pregnancy; O69.81X0 Labor and delivery complicated by cord around neck, without compression, not applicable or unspecified; F12.90 Cannabis use, unspecified, uncomplicated; O99.324 Drug use complicating childbirth
CPT/HCPCS: 59025; 80307; 81001; 85025; 87077; 87086; 87186; 99285; G0481; J3010; J7120

== ENCOUNTER 2018-01-13 09:39 | Emergency (ER) | payer OTHER ==
[~2018-01-13 09:39] MED LIST changes: +CEPH500C PO; +IBUP-232 PO; -PERI8.6T PO; +SENN1TAB PO
[2018-01-13 09:43] VITALS: BP 126/65; PULSE 111; RESP 20; TEMP 97.9; O2SAT 100
[2018-01-13] MEDS ORDERED: PERM5CRE11 TOPICAL (10:42)
--- NOTE | 2018-01-13 10:42 | PD ---
HPI Chief Complaint: Skin Problem Time Seen by Provider: 10:31 Travel History International Travel<30 days: No Contact w/Intl Traveler<30days: No Traveled to known affect area: No History of Present Illness HPI 57-year-old female presents to the emergency department with complaint of a generalized itchy rash 1 week. Her children have the rash and are all itchy also. She denies fever, vomiting. Denies new exposures to lotions, soaps, detergents, perfumes, foods, medications, environmental exposures. Denies airway edema, tongue edema, shortness of breath. Has tried hydrocortisone, another kind ointment, and an antifungal without relief of symptoms. No known aggravating or relieving factors. Symptoms are mild to moderate in severity. No primary care provider. Denies significant past medical history. No known allergies. Has no other medical complaints. No other modifying factors or associated signs and symptoms. PFSH Past Medical History Medical History: Denies Significant Hx Tetanus Vaccination: < 5 Years ?: Not Past Surgical History Surgical History: No Previous Surgery Social History Alcohol Use: No Tobacco Use: Yes (smokes one cigar per day) Substance Use: No Allergies-Medications (Allergen,Severity, Reaction): Coded Allergies: No Known Allergies (Verified Adverse Reaction, Unknown, 01/13/18) Reported Meds & Prescriptions Reported Meds & Active Scripts Active Elimite Topical (Permethrin) 5% Cream 1 Applic TOPICAL ONCE Review of Systems Except as stated in HPI: all other systems reviewed are Neg Physical Exam Narrative GENERAL: Well-nourished, well-developed black female patient, in no acute distress SKIN: Warm and dry. Generalized erythremic pimple-like rash to chest, abdomen, back, bilateral upper extremity, bilateral lower extremities; some areas appear excoriated. No areas with cellulitic process noted. HEAD: Atraumatic. Normocephalic. EYES: Pupils equal and round. No scleral icterus. No injection or drainage. ENT: Mucosa pink and moist. Airway patent. NECK: Trachea midline. CARDIOVASCULAR: Regular rate. RESPIRATORY: No accessory muscle use. GASTROINTESTINAL: Flat. MUSCULOSKELETAL: No obvious deformities. No clubbing. No cyanosis. No edema. NEUROLOGICAL: Awake and alert. Oriented 3. No obvious cranial nerve deficits. Motor grossly within normal limits. Normal speech. PSYCHIATRIC: Appropriate mood and affect; insight and judgment normal. Data Data Last Documented VS Vital Signs Date Time Temp Pulse Resp B/P (MAP) Pulse Ox O2 Delivery O2 Flow Rate FiO2 01/13/18 09:43 97.9 111 20 126/65 (85) 100 Orders Orders Ed Discharge Order (01/13/18 10:42) MDM Medical Decision Making Medical Screen Exam Complete: Yes Emergency Medical Condition: Yes Medical Record Reviewed: Yes Differential Diagnosis Scabies, contact dermatitis, bedbugs, hives Narrative Course 37-year-old female physical exam and HPI consistent with scabies rash. Patient is afebrile and nontoxic-appearing. Denies fever, vomiting. Heart rate recheck on physical exam is proximally 80-90 bpm. Denies airway edema or shortness of breath. Her children have similar rash with itching also. Elimite cream prescribed for home. Instructed patient to follow up with primary care provider. Patient verbalizes understanding and agreement with treatment plan. Patient is medically cleared and stable for discharge. Discussed reasons to return to the emergency department. Patient agrees with treatment plan. The patients vital signs are stable and the patient is stable for outpatient follow-up and treatment. Patient discharged home, stable and in no acute distress. Diagnosis Primary Impression: Scabies Referrals: [facility] Rvda Master Certified Rv Technician Primary Care Physician Patient Instructions: General Instructions, Scabies (ED) Additional Instructions: Elimite cream as directed; repeat in one week as needed Soaking in cool water or apply cool, wet washcloths to irritated areas to minimize itching Apply anti-itch creams, such as calamine lotion, to relieve pain and itching as needed [id number] antihistamines as needed and as directed to relieve allergic symptoms caused by scabies Wash all pillows, linens, blankets, etc. in hot water and dry in hot dryer Bag and all unwashable linens, Willard stuffed animals, etc. in a tightly sealed garbage bag for up to 2 weeks Follow-up with documentation specialist Follow-up with primary care provider Return to the emergency department immediately with worsening of symptoms Med/Other Pt SpecificInfo: Prescription(s) given Scripts Permethrin Topical (Elimite Topical) 5% Cream 1 APPLIC TOPICAL ONCE for Scabies, #1 TUBE 1 Refill Prov: Jaida Khalil 01/13/18 Disposition: 01 DISCHARGE HOME Condition: Stable Jaida Khalil Jan 13, 2018 10:42
== END 2018-01-13 10:59 | disposition home or self-care (01) ==
LOC: NEPK 09:39
DX: B86 Scabies (principal); F17.290 Nicotine dependence, other tobacco product, uncomplicated
CPT/HCPCS: 99283

== ENCOUNTER 2018-01-21 10:19 | Emergency (ER) | payer OTHER ==
[~2018-01-21] VITALS: Ht 170.2 cm; Wt 63.0 kg
[~2018-01-21 10:19] MED LIST changes: -CEPH500C PO; -IBUP-232 PO; +PERM5CRE11 TOPICAL; -PRENTAB PO; -SENN1TAB PO
[2018-01-21 10:54] VITALS: BP 128/60; PULSE 95; RESP 16; TEMP 98.9; O2SAT 100
[2018-01-21] MEDS ORDERED: AZITHROMYCIN PWD FOR SUSP 1 GM PACKET PO ONE (12:15)
[2018-01-21] MEDS ORDERED: LIDOCAINE HCL 1% 50 ML VIAL IM ONE (12:15)
[2018-01-21] MEDS ORDERED: cefTRIAXone 250 MG VIAL IM ONE (12:15)
[2018-01-21] MEDS ORDERED: ONDANSETRON ODT 4 MG TAB PO ONE (12:15)
--- NOTE | 2018-01-21 13:00 | PD ---
HPI Chief Complaint: Hand Scudder Problem/Complaint Time Seen by Provider: 11:41 Travel History International Travel<30 days: No Contact w/Intl Traveler<30days: No Traveled to known affect area: No History of Present Illness HPI 37-year-old female presents to the emergency department with complaint of left lower abdominal pain that comes and goes and abnormal vaginal discharge and odor 2 weeks. Denies nausea, vomiting. Unknown exposure to STD/STI. Denies dysuria, hematuria. Last menstrual period was September 29. When I asked the patient if she was she said she did not know, but she is assuming she is. She said she was seen at [facility] earlier today and was told she had a positive test. She denies vaginal bleeding, leaking. UPT done in the ER is positive. This is her eighth and she has had one miscarriage. Rates pain 3/10. Pain comes and goes. Says it is a sharp shooting pain. She has not seen an derrick worker well service. She has a primary care provider but does not know the name. No known allergies. Denies significant past medical history. Has no other medical complaints. No other modifying factors or associated signs and symptoms. [facility] Past Medical History Anemia: Yes Influenza Vaccination: No ?: Unknown Past Surgical History Surgical History: No Previous Surgery Social History Alcohol Use: No Tobacco Use: Yes (3 BLACK AND MILDS A DAY) Substance Use: Yes (OCCASIONAL MARIJUANA) Allergies-Medications (Allergen,Severity, Reaction): Coded Allergies: No Known Allergies (Verified Adverse Reaction, Unknown, 01/13/18) Reported Meds & Prescriptions Reported Meds & Active Scripts Active Elimite Topical (Permethrin) 5% Cream 1 Applic TOPICAL ONCE Review of Systems Except as stated in HPI: all other systems reviewed are Neg Physical Exam Narrative GENERAL: Well-nourished, well-developed black female patient, in no acute distress; afebrile, nontoxic-appearing SKIN: Warm and dry. HEAD: Atraumatic. Normocephalic. EYES: Pupils equal and round. No scleral icterus. No injection or drainage. ENT: Mucous membranes pink and moist. NECK: Trachea midline. No lymphadenopathy. CARDIOVASCULAR: Regular rate and rhythm. No murmur appreciated. RESPIRATORY: No accessory muscle use. Clear to auscultation. Breath sounds equal bilaterally. GASTROINTESTINAL: Rounded. Abdomen soft, non-tender, nondistended. Bilateral pelvic region nontender to palpation. Hepatic and splenic margins not palpable. No guarding, rigidity, rebound tenderness. PELVIC: Exam done in the presence of a nurse. Speculum exam reveals edematous and erythematous cervix with light green , mucopurulent, frothy foul-smelling discharge. Bimanual exam reveals no palpable masses or adnexa tenderness, no uterine tenderness. No cervical motion tenderness. BACK: No CVA tenderness. MUSCULOSKELETAL: No obvious deformities. No clubbing. No cyanosis. No edema. NEUROLOGICAL: Awake and alert. No obvious cranial nerve deficits. Motor grossly within normal limits. Normal speech. PSYCHIATRIC: Appropriate mood and affect; insight and judgment normal. Data Data Last Documented VS Vital Signs Date Time Temp Pulse Resp B/P (MAP) Pulse Ox O2 Delivery O2 Flow Rate FiO2 01/21/18 10:54 98.9 95 16 128/60 (82) 100 Orders Orders Beta Hcg (Quant/Titer) (01/21/18 12:05) Complete Blood Count With Diff (01/21/18 12:05) Comprehensive Metabolic Panel (01/21/18 12:05) Gc And Chlamydia Pcr (01/21/18 12:05) Wet Prep Profile (01/21/18 12:05) Urinalysis - C+S If Indicated (01/21/18 12:05) Azithromycin Powd Pack (Zithromax Powd P (01/21/18 12:15) Ed Urine Pregnancytest Poc (01/21/18 12:05) Ondansetron Odt (Zofran Odt) (01/21/18 12:15) Ceftriaxone Inj (Rocephin Inj) (01/21/18 12:15) Lidocaine 1% Inj (50 Ml) (Xylocaine 1% I (01/21/18 12:15) Urine Culture (01/21/18 12:45) Lidocaine 1% Inj (Xylocaine 1% Inj) (01/21/18 13:49) Metronidazole (Flagyl) (01/21/18 14:00) Labs Laboratory Tests Test 01/21/18 12:45 White Blood Count 7.6 TH/MM3 Red Blood Count 3.94 MIL/MM3 Hemoglobin 11.5 GM/DL Hematocrit 33.2 % Mean Corpuscular Volume 84.3 FL Mean Corpuscular Hemoglobin 29.3 PG Mean Corpuscular Hemoglobin Concent 34.7 % Red Cell Distribution Width 14.5 % Platelet Count 217 TH/MM3 Mean Platelet Volume 8.6 FL Neutrophils (%) (Auto) 69.3 % Lymphocytes (%) (Auto) 23.5 % Monocytes (%) (Auto) 6.1 % Eosinophils (%) (Auto) 0.5 % Basophils (%) (Auto) 0.6 % Neutrophils # (Auto) 5.3 TH/MM3 Lymphocytes # (Auto) 1.8 TH/MM3 Monocytes # (Auto) 0.5 TH/MM3 Eosinophils # (Auto) 0.0 TH/MM3 Basophils # (Auto) 0.0 TH/MM3 CBC Comment DIFF FINAL Differential Comment Urine Color LIGHT-YELLOW Urine Turbidity CLEAR Urine pH 7.5 Urine Specific [place] 1.004 Urine Protein NEG mg/dL Urine Glucose (UA) NEG mg/dL Urine Ketones NEG mg/dL Urine Occult Blood NEG Urine Nitrite NEG Urine Bilirubin NEG Urine Urobilinogen LESS THAN 2.0 MG/DL Urine Leukocyte Esterase LARGE Urine RBC 6 /hpf Urine WBC 15 /hpf Urine Squamous Epithelial Cells 11 /hpf Urine Bacteria RARE /hpf Urine Trichomonas RARE Microscopic Urinalysis Comment CULTURE INDICATED Clue Cells (Wet Prep) NONE SEEN Vaginal Trichomonas (Wet Prep) PRESENT Vaginal Yeast (Wet Prep) NONE SEEN Blood Urea Nitrogen 4 MG/DL Creatinine 0.57 MG/DL Random Glucose 77 MG/DL Total Protein 6.7 GM/DL Albumin 3.2 GM/DL Calcium Level 8.7 MG/DL Alkaline Phosphatase 45 U/L Aspartate Amino Transf (AST/SGOT) 8 U/L Alanine Aminotransferase (ALT/SGPT) 11 U/L Total Bilirubin 0.1 MG/DL Sodium Level 139 MEQ/L Potassium Level 3.6 MEQ/L Chloride Level 107 MEQ/L Carbon Dioxide Level 25.9 MEQ/L Anion Gap 6 MEQ/L Estimat Glomerular Filtration Rate 145 ML/MIN Human Chorionic Gonadotropin, Quant 33496 MIU/ML [facility] Medical Decision Making Medical Screen Exam Complete: Yes Emergency Medical Condition: Yes Medical Record Reviewed: Yes Differential Diagnosis , chlamydia, gonorrhea, trichomonas, vaginal yeast, bacterial vaginosis , PID Narrative Course 37-year-old female with positive test in the emergency department. Her last menstrual period was September 29. Complaining of abnormal vaginal discharge and odor with left lower quadrant abdominal pain 2 weeks. CBC, CMP, beta-hCG, urinalysis, UPT, wet prep, chlamydia, gonorrhea, pelvic ultrasound ordered. 1400: Trichomonas positive. Vaginal yeast and bacterial vaginosis negative. Chlamydia and gonorrhea pending. Patient treated empirically with azithromycin , Rocephin, and Flagyl in the ER. Urinalysis with signs of infection. Keflex prescribed for home. Ultrasound was canceled secondary to patient being too far along for ultrasound to be performed in the ER. Patient will be brought to OB ED for further evaluation once discharged from the ED. Instructed patient to follow-up with STUDENT SERVICES COORDINATOR. Keflex prescribed for home. Instructed patient to follow up with primary care provider. Patient verbalizes understanding and agreement with treatment plan. Patient is medically cleared and stable for discharge. Discussed reasons to return to the emergency department. Patient agrees with treatment plan. The patients vital signs are stable and the patient is stable for outpatient follow-up and treatment. Patient discharged home, stable and in no acute distress. Diagnosis Primary Impression: Qualified Codes: Z34.90 - Encounter for supervision of normal , unspecified, unspecified trimester Additional Impressions: UTI (urinary tract infection) Qualified Codes: N39.0 - Urinary tract infection, site not specified Trichomoniasis Referrals: Environmental Conservation Professor Primary Care Physician Patient Instructions: General Instructions, (DC), Trichomoniasis (ED) , Urinary Tract Infection in (ED) Additional Instructions: Avoid sexual activity for 14 days No sexual activity with your partner/s until they have been treated and waited 14 days Avoid sexual activity while genital sores exist Inform all sexual partners within the past 3-6 months that they need to be evaluated and treated Use condoms every time you have sex Follow-up with primary care provider Return to the emergency department immediately with worsening of symptoms Med/Other Pt SpecificInfo: Prescription(s) given Scripts Cephalexin (Keflex) 500 Mg Cap 500 MG PO Q12H for Infection for 7 Days, #14 CAP 0 Refills Prov: Jaida Khalil 01/21/18 Disposition: 01 DISCHARGE HOME Condition: Stable Jaida Khalil Jan 21, 2018 13:00
[2018-01-21 13:12] LABS: AUTOMATED NEUTROPHIL # 5.3 TH/MM3 (1.8-7.7); BASOPHIL % 0.6 % (0.0-2.0); EOSINOPHIL % 0.5 % (0.0-4.0); HEMATOCRIT 33.2 % (35.0-46.0); HEMOGLOBIN 11.5 GM/DL (11.6-15.3); LYMPH % 23.5 % (9.0-44.0); LYMPHOCYTE # 1.8 TH/MM3 (1.0-4.8); MEAN CELL VOLUME 84.3 FL (80.0-100.0); MEAN CORPUSCULAR HEMOGLOBIN 29.3 PG (27.0-34.0); MEAN CORPUSCULAR HGB CONC 34.7 % (32.0-36.0); MEAN PLATELET VOLUME 8.6 FL (7.0-11.0); MONO % 6.1 % (0.0-8.0); MONOCYTE # 0.5 TH/MM3 (0-0.9); NEUT % 69.3 % (16.0-70.0); PLATELET COUNT 217 TH/MM3 (150-450); RED BLOOD COUNT 3.94 MIL/MM3 (4.00-5.30); RED CELL DISTRIBUTION WIDTH 14.5 % (11.6-17.2); WHITE BLOOD COUNT 7.6 TH/MM3 (4.0-11.0)
[2018-01-21 13:28] LABS: ALBUMIN 3.2 GM/DL (3.4-5.0); AST (GOT) 8 U/L (15-37); BICARBONATE 25.9 MEQ/L (21.0-32.0); BLOOD UREA NITROGEN 4 MG/DL (7-18); CALCIUM 8.7 MG/DL (8.5-10.1); CHLORIDE 107 MEQ/L (98-107); CREATININE 0.57 MG/DL (0.50-1.00); GLOMERULAR FILTRATION RATE 145 ML/MIN (>89); GLUCOSE,RANDOM 77 MG/DL (74-106); SODIUM (NA) 139 MEQ/L (136-145)
[2018-01-21 13:42] LABS: BACTERIA, URINE RARE /hpf; BILIRUBIN, URINE NEG (NEG); BLOOD, URINE NEG (NEG); GLUCOSE,URINE NEG (NEG); KETONE, URINE NEG (NEG); NITRITE,URINE NEG (NEG); PH, URINE 7.5 (5.0-8.5); SQUAMOUS EPITHELIAL CELL URINE 11 /hpf (0-5); TRICHOMONAS, URINE RARE; URINE COLOR LIGHT-YELLOW (YELLW/STRAW); URINE LEUKOCYTE ESTERASE LARGE (NEG)
[2018-01-21 13:46] LABS: ALKALINE PHOSPHATASE 45 U/L (45-117); ALT (GPT) 11 U/L (10-53); TOTAL BILIRUBIN ADULT 0.1 MG/DL (0.2-1.0); TOTAL PROTEIN 6.7 GM/DL (6.4-8.2)
[2018-01-21] MEDS ORDERED: LIDOCAINE HCL 1% 20 ML VIAL ONE (13:49)
[2018-01-21] MEDS ORDERED: metroNIDAZOLE 500 MG TAB PO ONE (14:00)
[2018-01-21] MEDS ORDERED: CEPH-460 PO (14:27)
== END 2018-01-21 15:10 | disposition home or self-care (01) ==
LOC: NEPD 10:19
DX: O23.40 Unspecified infection of urinary tract in pregnancy, unspecified trimester (principal); O98.319 Other infections with a predominantly sexual mode of transmission complicating pregnancy, unspecified trimester; O99.320 Drug use complicating pregnancy, unspecified trimester; F12.90 Cannabis use, unspecified, uncomplicated; O99.330 Smoking (tobacco) complicating pregnancy, unspecified trimester; F17.290 Nicotine dependence, other tobacco product, uncomplicated; Z3A.00 Weeks of gestation of pregnancy not specified
CPT/HCPCS: 80053; 81001; 84702; 84703; 85025; 87086; 87210; 87491; 87591; 96372; 99284; J0696

== ENCOUNTER 2018-06-08 00:08 | Inpatient (IN) ==
[2018-06-08] MEDS ORDERED: Sodium Chlor 0.9% Inj 500 ML IV.SIG PRN (01:17)
[2018-06-08] MEDS ORDERED: fentaNYL Citrate Inj 100 MCG/2 ML Ampul IV.PUSH PRN (01:17)
[2018-06-08] MEDS ORDERED: Oxytocin 30 Units/500ml Premix 30 UNITS/500 ML BAG IV.SIG ONE (01:17)
[2018-06-08] MEDS ORDERED: Sod Chloride 0.9% Inj 1,000 ML IV.CONT PRN (01:17)
[2018-06-08] MEDS ORDERED: Naloxone Inj 0.4 MG/ML Vial IV.PUSH PRN ×2 (01:17→10:31)
--- NOTE | 2018-06-08 01:25 | ED ---
History of Present Illness Primary Care Physician: No Primary Care Physician Chief Complaint: ctx History of Present Illness: Pt is a 38y/o @ 38.0wks. She has PNC with Zainab Daniels. She presents this evening with c/o painful ctx. No LOF or VB. +FM. Her is c/b grandmultiparity, CT early in preg, late PNC (22wks), AMA, and A1GDM. OBHx: -- x6 (one infant at 10 months) -- SAB x1 Weeks Gestation:: 38 Para: 6 : 8 Review of Systems All other systems reviewed negative except as stated in HPI PMFSH - Medical / Surgical Hx Neg / Unobtainable Medical Problems Denied: Yes Surgical History: No Previous Surgery - Tobacco History Second Hand Smoke Exposure: Yes Smoking Status: Never smoker - Alcohol History How Often Do You Have a Drink Containing Alcohol: Never - Substance Use History Substance History: No History of Abuse - Travel History Recent Travel in the [facility] Within the Last 8 Weeks: No Recent Travel Out of the Country Within the Last 8 Weeks: No Medications and Allergies Active Medications: Active Medications Sodium Chloride (Ns Flush) 2 ml IV.FLUSH BID RAVINDRA Sodium Chloride (Ns Flush) 2 ml IV.FLUSH PRN PRN PRN Reason: FLUSH AFTER USING IV ACCESS Allergies Allergy/AdvReac Type Severity Reaction Status Date / Time No Known Allergies Allergy Unknown NONE Uncoded 06/08/18 00:47 Home Medications Medication Instructions Recorded Confirmed Type vit 11-krpe-moiep-dha 1 tab PO DAILY 06/08/18 06/08/18 History [ + DHA] Exam Vital signs: Vital Signs 06/08/18 00:29 06/08/18 00:30 Temperature 97.5 F L Pulse Rate 84 Respiratory Rate 1 L Blood Pressure 115/67 Intake & Output 06/07/18 06/07/18 06/08/18 06:59 18:59 06:59 Weight 65.771 kg Narrative: General: well developed, well nourished, no acute distress HEENT: normocephalic atraumatic, extraocular movements intact, neck supple Abdomen: soft, gravid, nontender, nondistended Uterus: fundus term Extremities: full range of motion Skin: normal coloration, no rashes, no suspicious skin lesions noted Neurologic: cranial nerves 2-12 grossly intact, normal muscle tone, normal gait Psychiatric: normal mood and affect, appropriate FHTs: 135, +accels, no decels, moderate varability, reactive [place]: irreg ctx Cvx: 5--> 6cm Assessment and Plan - Diagnosis (1) 38 weeks gestation of Code(s): Z3A.38 - 38 weeks gestation of Status: Acute (2) Grand multipara in labor in third trimester Code(s): O09.43 - Supervision of with grand multiparity, third trimester Status: Acute (3) AMA (advanced maternal age) multigravida 35+ Code(s): O09.529 - Supervision of elderly multigravida, unspecified trimester Status: Acute (4) White classification A1 gestational diabetes mellitus Code(s): O24.410 - Gestational diabetes mellitus in , diet controlled Status: Acute (5) Late care Code(s): O09.30 - Supervision of with insufficient care, unspecified trimester Status: Acute - Plan 38y/o @ 38.0wks in labor with A1GDM, AMA, grandmultiparity. -- admit to L&D -- FHTs cat 1 -- toco irregular -- cvx changed from 5 to 6cm -- GBS neg -- declines epidural -- CLD, CEFM/toco -- anticipate Discharge Plan - Discharge Disposition Patient Disposition: 30 Still Patient - Physicians Team ED Provider: Jl Jennings V Primary Care Provider: Primary Care Nancy Little
[2018-06-08] MEDS ORDERED: Citric Acid/Sodium Citrate Liq 30 ML UDC PO SCH (01:30)
--- NOTE | 2018-06-08 01:33 | P.OBGPN ---
Patient Name: Leonides Stack Date of : 82 Patient Status: Inpatient Attending Provider: Jl Jennings V Date: 06/08/18 01:18 Initialization Date: 06/08/18 01:18 History of Present Illness Primary Care Physician: No Primary Care Physician Chief Complaint: ctx History of Present Illness: Pt is a 38y/o @ 38.0wks. She has PNC with Zainab Daniels. She presents this evening with c/o painful ctx. No LOF or VB. +FM. Her is c/b grandmultiparity, CT early in preg, late PNC (22wks), AMA, and A1GDM. OBHx: -- x6 (one infant at 10 months) -- SAB x1 Weeks Gestation:: 38 Para: 6 : 8 Review of Systems All other systems reviewed negative except as stated in HPI PMFSH - Medical / Surgical Hx Neg / Unobtainable Medical Problems Denied: Yes Surgical History: No Previous Surgery - Tobacco History Second Hand Smoke Exposure: Yes Smoking Status: Never smoker - Alcohol History How Often Do You Have a Drink Containing Alcohol: Never - Substance Use History Substance History: No History of Abuse - Travel History Recent Travel in the [place] Within the Last 8 Weeks: No Recent Travel Out of the Country Within the Last 8 Weeks: No Medications and Allergies Active Medications: Active Medications Sodium Chloride (Ns Flush) 2 ml IV.FLUSH BID RAVINDRA Sodium Chloride (Ns Flush) 2 ml IV.FLUSH PRN PRN PRN Reason: FLUSH AFTER USING IV ACCESS Allergies Allergy/AdvReac Type Severity Reaction Status Date / Time No Known Allergies Allergy Unknown NONE Uncoded 06/08/18 00:47 Home Medications Medication Instructions Recorded Confirmed Type vit 40-rwvh-coykk-dha 1 tab PO DAILY 06/08/18 06/08/18 History [ + DHA] Exam Vital signs: Vital Signs 06/08/18 00:29 06/08/18 00:30 Temperature 97.5 F L Pulse Rate 84 Respiratory Rate 1 L Blood Pressure 115/67 Intake & Output 06/07/18 06/07/18 06/08/18 06:59 18:59 06:59 Weight 65.771 kg Narrative: General: well developed, well nourished, no acute distress HEENT: normocephalic atraumatic, extraocular movements intact, neck supple Abdomen: soft, gravid, nontender, nondistended Uterus: fundus term Extremities: full range of motion Skin: normal coloration, no rashes, no suspicious skin lesions noted Neurologic: cranial nerves 2-12 grossly intact, normal muscle tone, normal gait Psychiatric: normal mood and affect, appropriate FHTs: 135, +accels, no decels, moderate varability, reactive [place]: irreg ctx Cvx: 5--> 6cm Assessment and Plan - Diagnosis (1) 38 weeks gestation of Code(s): Z3A.38 - 38 weeks gestation of Status: Acute (2) Grand multipara in labor in third trimester Code(s): O09.43 - Supervision of with grand multiparity, third trimester Status: Acute (3) AMA (advanced maternal age) multigravida 35+ Code(s): O09.529 - Supervision of elderly multigravida, unspecified trimester Status: Acute (4) White classification A1 gestational diabetes mellitus Code(s): O24.410 - Gestational diabetes mellitus in , diet controlled Status: Acute (5) Late care Code(s): O09.30 - Supervision of with insufficient care, unspecified trimester Status: Acute - Plan 38y/o @ 38.0wks in labor with A1GDM, AMA, grandmultiparity. -- admit to L&D -- FHTs cat 1 -- toco irregular -- cvx changed from 5 to 6cm -- GBS neg -- declines epidural -- CLD, CEFM/toco -- anticipate Discharge Plan - Discharge Disposition Patient Disposition: 30 Still Patient - Physicians Team ED Provider: Jl Jennings V Primary Care Provider: Primary Care Nancy Little
[2018-06-08 02:26] LABS: Baso # (Auto) 0.1 th/mm3 (0.0-0.2); Baso % (Auto) 0.8 % (0.0-2.0); Eos % (Auto) 0.5 % (0.0-4.0); Hematocrit 35.9 % (35.0-46.0); Lymph # (Auto) 2.4 th/mm3 (1.0-4.8); Lymph % (Auto) 22.3 % (9.0-44.0); Mean Corpuscular HGB Conc 33.4 % (32.0-36.0); Mean Corpuscular Hemoglobin 29.1 pg (27.0-34.0); Mean Corpuscular Volume 86.9 fL (80.0-100.0); Mean Platelet Volume 9.9 fL (7.0-11.0); Mono # (Auto) 1.3 th/mm3 (0.0-0.9); Mono % (Auto) 11.8 % (0.0-8.0); Neut # (Auto) 6.9 th/mm3 (1.8-7.7); Neut % (Auto) 64.6 % (16.0-70.0); Platelet Count 207 th/mm3 (150-450); Red Blood Count 4.13 mil/mm3 (4.00-5.30); White Blood Count 10.7 th/mm3 (4.0-11.0)
[2018-06-08 02:56] LABS: Amorphous Sediment,Urine Rare /hpf; Bacteria,Urine Rare /hpf; Bilirubin,Urine Negative (Negative); Clarity,Urine Hazy (Clear); Color,Urine Straw (Yellw/Straw); Glucose,Urine (UA) Negative (Negative); Leukocyte Esterase,Urine Large (Negative); Mucus,Urine Few /lpf (Occasional); Nitrite,Urine Negative (Negative); Specific Gravity,Urine 1.004 (1.002-1.035); Squamous Epithelial Cell,Urine 13 /hpf (0-5)
[2018-06-08 03:00] LABS: Amphetamine Urine With Conf Neg (Neg); Benzodiazepine Urine With Conf Neg (Neg)
[2018-06-08] MEDS ORDERED: fentaNYL 2MCG-Bupiv 0.125% Epi 150 ML EPIDURAL ONE (08:27)
[2018-06-08] MEDS ORDERED: Lidocaaine 1.5%/Epinephrine 1:200,000 PF Inj 5 ML Amp ONE (08:48)
[2018-06-08] MEDS ORDERED: Lidocaine PF 1% Inj 5 ML Vial ONE (08:48)
[2018-06-08] MEDS ORDERED: fentaNYL Citrate Inj 100 MCG/2 ML Ampul EPIDURAL ONE (09:40)
[2018-06-08] MEDS ORDERED: fentaNYL 2MCG-Bupiv 0.125% Epi 150 ML EPIDURAL PRN (09:50)
[2018-06-08] MEDS ORDERED: Oxytocin 30 Units/500ml Premix 30 UNITS/500 ML BAG ONE (10:14)
[2018-06-08] MEDS ORDERED: Methylergonovine Inj 0.2 MG/ML Ampul ONE (10:15)
--- NOTE | 2018-06-08 10:28 | P.OBDELI ---
Weeks Gestation: 38 Artificial Rupture of Membrane: Yes (Clear fluid) Artificial ROM Date: 06/08/18 Artificial ROM Time: 10:15 Anesthesia: Epidural Episiotomy: none Vaginal Delivery: Normal, Spontaneous Presentation: Occiput anterior Nuchal Cord: x1 Delayed Cord Clamping (45 sec): Yes Placenta: Spontaneous delivery, Intact Laceration: None Estimated blood loss (mL): 200 Infant: Female Additional Information: Hemostasis was obtained with massage and IV Pitocin solution. No complications.
[2018-06-08] MEDS ORDERED: Acetaminophen 325 MG Tablet PO PRN (10:31)
[2018-06-08] MEDS ORDERED: Oxytocin 30 Units/500ml Premix 30 UNITS/500 ML BAG IV.CONT PRN (10:31)
[2018-06-08] MEDS ORDERED: Bisacodyl 10 MG Supp RECTAL PRN (10:31)
[2018-06-08] MEDS ORDERED: Benzocaine 20% Top Spray 60 ML Can TOPICAL PRN (10:31)
[2018-06-08] MEDS ORDERED: Witch Hazel 50%/Glyderin 12.5% 40 Pad Jar RECTAL PRN (10:31)
[2018-06-08] MEDS ORDERED: Diphtheria/Tetanus/Pertussis Vaccine Inj 0.5 ML Syringe IM ONE (16:00)
[2018-06-08] MEDS ORDERED: Measles/Mumps/Rubella Vaccine Inj 0.5 ML Vial SQ ONE (16:00)
[2018-06-08] MEDS ORDERED: Zolpidem Tartrate 5 MG Tablet PO PRN (21:00)
[2018-06-08] MEDS: Senna/Docusate Sodium 8.6/50 MG Tablet PO SCH (22:39)
--- NOTE | 2018-06-09 08:20 | P.PNOB ---
Subjective Interval history: Patient seen and examined this morning. She is a 38-year-old delivered at 38 weeks . Patient is day 1 after . AFVSS overnight. Patient's pain is well-controlled. Patient reports eating and drinking without any nausea or vomiting. Patient reports minimal bleeding. Patient has passed gas and has had bowel movements. Patient is walking without lower extremity pain or shortness of breath. Patient reports desire for contraception with possible tubal ligation and is breast-feeding. Objective Vital Signs/I&O: Vital Signs 06/08/18 08:20 06/08/18 09:05 06/08/18 09:10 Temperature Pulse Rate 73 79 81 Respiratory Rate 18 Blood Pressure 105/54 L 120/66 114/70 06/08/18 09:18 06/08/18 09:25 06/08/18 09:35 Temperature Pulse Rate 76 76 85 Respiratory Rate 18 Blood Pressure 115/85 111/68 114/71 06/08/18 09:40 06/08/18 09:50 06/08/18 10:05 Temperature Pulse Rate 87 74 76 Respiratory Rate Blood Pressure 117/72 113/67 114/60 06/08/18 10:15 06/08/18 10:31 06/08/18 10:48 Temperature 97.5 F L Pulse Rate 83 81 66 Respiratory Rate 18 16 Blood Pressure 105/61 105/60 96/51 L 06/08/18 11:02 06/08/18 11:16 06/08/18 11:18 Temperature Pulse Rate 77 73 Respiratory Rate 16 16 Blood Pressure 106/64 100/62 06/08/18 11:45 06/08/18 12:22 06/08/18 20:00 Temperature 97.8 F 98.1 F Pulse Rate 66 82 67 Respiratory Rate 16 20 18 Blood Pressure 106/61 104/69 103/65 Result Diagrams: 06/08/18 01:40 Objective Remarks: GENERAL: Well-nourished, well-developed patient. CARDIOVASCULAR: Regular rate and rhythm without murmurs, gallops, or rubs. RESPIRATORY: Breath sounds equal bilaterally. No accessory muscle use. ABDOMEN/GI: Abdomen soft, non-tender. Fundus: Firm, non-tender at umbilicus. GENITOURINARY: Light to moderate bleeding. EXTREMITIES: No cyanosis or edema, non-tender, without signs of DVT. Medications and IVs: Active Medications Acetaminophen (Tylenol) 650 mg PO Q4H PRN PRN Reason: PAIN SCALE 1 TO 2 Al Hydroxide/Mg Hydroxide (Milk Of Magnesia Liq) 30 ml PO Q12H PRN PRN Reason: Mild Constipation Benzocaine (Americaine 20% Top [place]) 1 spray TOPICAL Q4H PRN PRN Reason: For Perineum Discomfort Bisacodyl (Dulcolax Supp) 10 mg RECTAL DAILY PRN PRN Reason: SEVERE CONSITIPATION Citric Acid/Sodium Citrate (Sodium Citrate/Citric Acid Liq) 30 ml PO FILE CLERK [facility] Stop: 06/12/18 01:29 Ephedrine Sulfate (Ephedrine/Ns Syringe) 10 mg IV.PUSH UNSCH PRN PRN Reason: SEE LABEL COMMENTS Stop: 06/09/18 09:40 Fentanyl Citrate (Fentanyl Inj) 50 mcg IV.PUSH Q1H PRN PRN Reason: Pain Scale 3 - 5 Last Admin: 06/08/18 07:20 Dose: 50 mcg Lactated Ringer's (Lr 1000 Ml Inj) 1,000 mls @ 125 mls/hr IV.CONT .Q8H RAVINDRA Last Admin: 06/09/18 04:20 Dose: Not Given Lactated Ringer's (Lr 1000 Ml Inj) 1,000 mls @ 3,000 mls/hr IV.SIG UNSCH PRN PRN Reason: compromise or epidural Last Admin: 06/08/18 09:23 Dose: 3,000 mls/hr Sodium Chloride (Ns Inj) 1,000 mls @ 100 mls/hr IV.CONT .Q10H PRN PRN Reason: SEE LABEL COMMENTS Sodium Chloride (Ns Inj) 500 mls @ 1,000 mls/hr IV.SIG UNSCH PRN PRN Reason: SEE LABEL COMMENTS Fentanyl/Bupivacaine/Sodium Chlor (Fentanyl 2 Mcg-Bupiv 0.125% Epi) 150 mls @ 12 mls/hr EPIDURAL PRN PRN PRN Reason: for Labor Pain Oxytocin (Pitocin 30 Units/Ns 500 Ml Premix) 30 units in 500 mls @ 100 mls/hr IV.CONT UNSCH X1 PRN PRN Reason: Heavy bleeding Last Admin: 06/08/18 11:21 Dose: 100 mls/hr Ibuprofen (Motrin) 800 mg PO Q8H PRN PRN Reason: For Cramping Last Admin: 06/09/18 06:46 Dose: 800 mg Lactulose (Lactulose Liq) 30 ml PO DAILY PRN PRN Reason: SEVERE CONSITIPATION Lidocaine HCl (Xylocaine 1% Inj) 10 ml INFILTRATN PRN PRN PRN Reason: For episiotomy repair Stop: 06/10/18 01:16 Lidocaine HCl (Xylocaine 1% Inj) 0.1 ml I-DERMAL PRN PRN PRN Reason: For IV start Stop: 06/11/18 01:16 Mineral Oil (Muri-Lube Oil) 10 ml TOPICAL PRN PRN PRN Reason: PRN perineal massage Miscellaneous Information (Misc Information) 1 each OTHER UNSCH PRN PRN Reason: SEE LABEL COMMENTS Stop: 06/09/18 09:40 Miscellaneous Information (Misc Information) 1 each OTHER UNSCH PRN PRN Reason: SEE LABEL COMMENTS Stop: 06/09/18 09:40 Naloxone HCl (Narcan Inj) 0.1 mg IV.PUSH Q2M PRN PRN Reason: for opiate reversal Ondansetron HCl (Zofran Inj) 4 mg IV.PUSH Q6H PRN PRN Reason: NAUSEA OR VOMITING Ondansetron HCl (Zofran Odt) 4 mg PO Q6H PRN PRN Reason: NAUSEA OR VOMITING Senna/Docusate Sodium (Lia-Colace) 1 tab PO BID [facility] Last Admin: 06/08/18 22:39 Dose: 1 tab Sennosides (Senokot) 17.2 mg PO Q12H PRN PRN Reason: Moderate Constipation Sodium Chloride (Ns Flush) 2 ml IV.FLUSH BID [facility] Last Admin: 06/08/18 22:39 Dose: 2 ml Sodium Chloride (Ns Flush) 2 ml IV.FLUSH UNSCH PRN PRN Reason: FLUSH AFTER USING IV ACCESS Witch Rabia/Glycerin (Tucks Pads) 1 applicatio RECTAL QID PRN PRN Reason: HEMORRHOIDS Zolpidem Tartrate (Ambien) 5 mg PO HS PRN PRN Reason: SLEEP Assessment and Plan - Plan Patient is a 38 year-old delivered at 38 weeks. Patient is day 1 after . Patient was counseled to do 6 weeks of pelvic rest. Patient was counseled to follow up in 6 weeks. Patient requested follow-up and contraception for tubal ligation. --AF VSS --Continue routine care --Motrin and Percocet when necessary for pain --Encourage OOB --Pelvic rest for 6 weeks will need follow-up appointment at that time. - with no complications. --Contraception: Patient desires tubal ligation but will discuss other options such as Depo to bridge between her discharge and appt. --Follow up H&H in am. --Anticipate discharge tomorrow --Discussed with Dr. Patel. - Attending Attestation The exam, history, and the medical decision-making described in the above note were completed with the assistance of the resident physician. I reviewed and agree with the findings presented. I attest that I had a [id number] encounter with the patient on the same day, and personally performed and documented my assessment and findings in the medical record.
[2018-06-09] MEDS: Senna/Docusate Sodium 8.6/50 MG Tablet PO SCH ×2 (09:19→21:14)
[2018-06-09] MEDS ORDERED: Ibuprofen 400 MG Tablet PO PRN ×2 (16:00→20:36)
[2018-06-10] MEDS ORDERED: medroxyPROGESTERone Acetate Inj 150 MG/ML Syringe IM ONE (07:38)
[2018-06-10 08:31] LABS: Hematocrit 34.8 % (35.0-46.0); Hemoglobin 11.4 gm/dL (11.6-15.3); Mean Corpuscular HGB Conc 32.8 % (32.0-36.0); Mean Corpuscular Hemoglobin 28.7 pg (27.0-34.0); Mean Corpuscular Volume 87.3 fL (80.0-100.0); Mean Platelet Volume 9.7 fL (7.0-11.0); Platelet Count 197 th/mm3 (150-450); Red Blood Count 3.99 mil/mm3 (4.00-5.30); Red Cell Distribution Width 14.2 % (11.6-17.2); White Blood Count 9.3 th/mm3 (4.0-11.0)
--- NOTE | 2018-06-10 08:31 | P.PNOB ---
Subjective Interval history: Patient is a 38-year-old delivered at 38 weeks. Patient is day 2 after . Patient's pain is well-controlled. Patient reports eating and drinking without any nausea or vomiting. Patient reports minimal bleeding. Patient has passed gas and had bowel movements. Patient is walking without lower extremity pain or shortness of breath. Patient reports desires tubal ligation contraception but will be bridged with Depo before discharge today. She is breast-feeding appropriately. Objective Vital Signs/I&O: Vital Signs 06/09/18 20:00 Temperature 98.5 F Pulse Rate 65 Respiratory Rate 18 Blood Pressure 102/60 Result Diagrams: 06/08/18 01:40 Objective Remarks: GENERAL: Well-nourished, well-developed patient. CARDIOVASCULAR: Regular rate and rhythm without murmurs, gallops, or rubs. RESPIRATORY: Breath sounds equal bilaterally. No accessory muscle use. ABDOMEN/GI: Abdomen soft, non-tender. Fundus: Firm, non-tender below the umbilicus. GENITOURINARY: Light to moderate bleeding. EXTREMITIES: No cyanosis or edema, non-tender, without signs of DVT. Medications and IVs: Active Medications Acetaminophen (Tylenol) 650 mg PO Q4H PRN PRN Reason: PAIN SCALE 1 TO 2 Al Hydroxide/Mg Hydroxide (Milk Of Magnesia Liq) 30 ml PO Q12H PRN PRN Reason: Mild Constipation Benzocaine (Americaine 20% [place]) 1 spray TOPICAL Q4H PRN PRN Reason: For Perineum Discomfort Bisacodyl (Dulcolax Supp) 10 mg RECTAL DAILY PRN PRN Reason: SEVERE CONSITIPATION Citric Acid/Sodium Citrate (Sodium Citrate/Citric Acid Liq) 30 ml PO [employer] [facility] Stop: 06/12/18 01:29 Fentanyl Citrate (Fentanyl Inj) 50 mcg IV.PUSH Q1H PRN PRN Reason: Pain Scale 3 - 5 Last Admin: 06/08/18 07:20 Dose: 50 mcg Lactated Ringer's (Lr 1000 Ml Inj) 1,000 mls @ 125 mls/hr IV.CONT .Q8H [facility] Last Admin: 06/09/18 23:14 Dose: Not Given Lactated Ringer's (Lr 1000 Ml Inj) 1,000 mls @ 3,000 mls/hr IV.SIG UNSCH PRN PRN Reason: compromise or epidural Last Admin: 06/08/18 09:23 Dose: 3,000 mls/hr Sodium Chloride (Ns Inj) 1,000 mls @ 100 mls/hr IV.CONT .Q10H PRN PRN Reason: SEE LABEL COMMENTS Sodium Chloride (Ns Inj) 500 mls @ 1,000 mls/hr IV.SIG UNSCH PRN PRN Reason: SEE LABEL COMMENTS Fentanyl/Bupivacaine/Sodium Chlor (Fentanyl 2 Mcg-Bupiv 0.125% Epi) 150 mls @ 12 mls/hr EPIDURAL PRN PRN PRN Reason: for Labor Pain Oxytocin (Pitocin 30 Units/Ns 500 Ml Premix) 30 units in 500 mls @ 100 mls/hr IV.CONT UNSCH X1 PRN PRN Reason: Heavy bleeding Last Admin: 06/08/18 11:21 Dose: 100 mls/hr Ibuprofen (Motrin) 800 mg PO Q8H PRN PRN Reason: For Cramping Lactulose (Lactulose Liq) 30 ml PO DAILY PRN PRN Reason: SEVERE CONSITIPATION Lidocaine HCl (Xylocaine 1% Inj) 0.1 ml I-DERMAL PRN PRN PRN Reason: For IV start Stop: 06/11/18 01:16 Mineral Oil (Muri-Lube Oil) 10 ml TOPICAL PRN PRN PRN Reason: PRN perineal massage Naloxone HCl (Narcan Inj) 0.1 mg IV.PUSH Q2M PRN PRN Reason: for opiate reversal Ondansetron HCl (Zofran Inj) 4 mg IV.PUSH Q6H PRN PRN Reason: NAUSEA OR VOMITING Ondansetron HCl (Zofran Odt) 4 mg PO Q6H PRN PRN Reason: NAUSEA OR VOMITING Senna/Docusate Sodium (Lia-Colace) 1 tab PO BID [facility] Last Admin: 06/09/18 21:14 Dose: 1 tab Sennosides (Senokot) 17.2 mg PO Q12H PRN PRN Reason: Moderate Constipation Sodium Chloride (Ns Flush) 2 ml IV.FLUSH BID [facility] Last Admin: 06/09/18 23:14 Dose: Not Given Sodium Chloride (Ns Flush) 2 ml IV.FLUSH UNSCH PRN PRN Reason: FLUSH AFTER USING IV ACCESS Witch Rabia/Glycerin (Tucks Pads) 1 applicatio RECTAL QID PRN PRN Reason: HEMORRHOIDS Zolpidem Tartrate (Ambien) 5 mg PO HS PRN PRN Reason: SLEEP Assessment and Plan - Plan Patient is a 38 year-old delivered at 38 weeks. Patient is day 2 after . Patient was counseled to do 6 weeks of pelvic rest. Patient was counseled to follow up in 6 weeks. Patient requested follow-up and contraception for tubal ligation. Will be bridged with Depo before discharge. --AF VSS --Continue routine care --Motrin and Percocet when necessary for pain --Encourage OOB --Pelvic rest for 6 weeks will need follow-up appointment at that time. - with no complications. --Contraception: Patient desires tubal ligation but will bridge with Depo before discharge today. --Anticipate discharge today --Discussed with Dr. Joshi.
[2018-06-10 08:32] VITALS: BP 105/67; PULSE 77; RESP 16; TEMP 98.4
== END 2018-06-10 11:50 | disposition home or self-care (01) ==
LOC: HOBED 00:08 → H2E 01:19 → H1EA 12:05
PROVIDERS: ADMIT Obstetrics & Gynecology; ATTEND Obstetrics & Gynecology